=== PATIENT | male | born 1985 | race Caucasian/White ===

== ENCOUNTER → 2022-02-12 13:13 | Outpatient (CLI) | payer BC, SELFPAY | PROVIDERS: PCP Family Medicine; Visit Provider Family Medicine | DX: R35.0 Frequency of micturition (principal) | CPT/HCPCS: 87086 ==

== ENCOUNTER → 2022-02-19 10:34 | Outpatient (CLI) | payer BC, SELFPAY ==
--- NOTE | 2022-02-19 10:35 | CT_ITS ---
FINAL REPORT CLINICAL HISTORY: flank pain FINDINGS: Axial CT images of the abdomen and pelvis were obtained without intravenous contrast. Coronal reformatted images were also obtained.This study was performed with techniques to keep radiation doses as low as reasonably achievable (ALARA). Individualized dose reduction techniques using automated exposure control or adjustment of mA and/or kV according to the patient's size were employed. Abdomen: The lung bases are clear. There is no evidence of renal stone or hydronephrosis. The gallbladder is present. The liver, spleen and pancreas have an unremarkable, unenhanced appearance. No inflammatory process is identified. Pelvis: The appendix is normal. Images of the pelvis reveal no evidence of ureteral dilation or ureteral stone. There is mild urinary bladder wall thickening which is likely inflammatory. No mass or abnormal fluid collection is identified. IMPRESSION: No renal or ureteral stone, or hydronephrosis. Mild bladder wall thickening, likely inflammatory. Reviewed, Interpreted and Dictated by Stephon Elder III, MD Transcribed by Dianne Mendez Authenticated and [facility]
== END ==
PROVIDERS: PCP Family Medicine; Visit Provider Family Medicine
DX: R10.9 Unspecified abdominal pain (principal)
CPT/HCPCS: 74176